=== PATIENT | male | born 1970 | race Caucasian/White ===

== ENCOUNTER 2024-01-02 10:31 | Emergency (ER) | payer OTHER, SELFPAY ==
[2024-01-02 10:51] VITALS: BP 123/82
[2024-01-02 11:35] LABS: % Basophils 0.9 % (0-2); % Eosinophils 4.2 % (0-6); % Immature Granulocytes 0.2 % (0-0.5); % Lymphocytes 29.8 % (20.5-51.1); % Monocytes 8.7 % (1.7-9.3); % Neutrophils 56.2 % (42.2-75.2); Absolute Basophils 0.1 10^3/uL (0-0.2); Absolute Eosinophils 0.2 10^3/uL (0-0.7); Absolute Lymphocytes 1.7 10^3/uL (1.2-3.4); Absolute Monocytes 0.5 10^3/uL (0.1-0.6); Absolute Neutrophils 3.3 10^3/uL (1.4-6.5); Hematocrit 40.9 % (39.0-52.0); Mean Corp Hgb Conc. 34.2 g/dL (33.0-37.0); Mean Corpuscular Hgb 29.8 pg (27.0-31.0); Mean Platelet Volume 9.8 fL (7.4-10.4); Nucleated Red Blood Cells % 0 % (-); Platelet Count 283 10^3/uL (130-400); White Blood Cell Count 5.8 10^3/uL (4.8-10.8)
[2024-01-02 12:05] LABS: ALT (SGPT) 23 U/L (0-50); AST (SGOT) 27 U/L (17-59); Albumin 4.8 g/dl (3.5-5.0); Alkaline Phosphatase 54 U/L (38-126); Blood Urea Nitrogen 17 mg/dl (9-20); Calcium 9.6 mg/dl (8.4-10.2); Carbon Dioxide 26 mmol/L (22-30); Chloride 105 mmol/L (98-107); Glucose 91 mg/dl (70-99); Lipase 364 U/L (23-300); Potassium 4.7 mmol/L (3.5-5.1); Sodium 136 mmol/L (135-145); Total Bilirubin 0.7 mg/dl (0.2-1.3); eGFR > 60.00
--- NOTE | 2024-01-02 14:52 | ED.GENMED ---
History of Present Illness
General
Chief Complaint: Abdominal Pain
Time Seen by Provider: 01/02/24 11:18
Travel History
Have you had any contact with someone who has COVID-19?: No
Do you have any symptoms of coronavirus? Fever > 100 degrees, chills, cough, shortness of breath, sore throat, loss of taste or smell, muscle aches, or headache?: No
History of Present Illness
History of Present Illness:
53-year-old male presents to the emergency department for evaluation of persistent and random right upper quadrant abdominal pain ongoing for the past month or more. He saw his primary care physician for this earlier this week and had outpatient
labs showing an elevated lipase. Lipase was approximately 6 times the upper limit on outpatient assay, transaminases were normal. He denies any current abdominal pain, denies any postprandial discomfort, vomiting, or fevers. Denies alcohol use or
NSAID use. No prior abdominal surgical history
Review of Systems
Review of Systems
Allergies reviewed?: Yes
All Other Systems: ROS reviewed and negative except as documented in HPI and ROS
Phy Exam
Physical Exam
Physical Exam:
GEN: Well appearing, NAD, WDWN
HEENT: Oral mucosa moist, no scleral icterus
Cardiac: Regular rate
Lung: No respiratory distress, no tachypnea
Abdomen: Soft, nontender, no rigidity
MSK: No gross deformity or injuries
Skin: Good color, no pallor or jaundice, no rashes
Neuro: AO x3, moves all extremities freely
Psych: Calm, cooperative
Course
Orders/Labs/Results
Orders:
Orders
01/02/24 11:29
Complete Blood Count/With Diff Urgent
Comprehensive Metabolic Panel Urgent
Lipase Urgent
01/02/24 11:44
CT Abd/Pel (IV only)-DH only Urgent
Comment:
Reason For Exam: pancreatitis
Abnormal Lab Results
04/18/24
11:29
Lipase 364 H U/L
(23-300)
01/02/24 11:29
01/02/24 11:29
Vital Signs
Initial and Last Documented VS:
Initial Vital Signs
Temp Pulse Resp BP Pulse Ox
98.3 F 67 16 123/82 100
01/02/24 10:51 01/02/24 10:51 01/02/24 10:51 01/02/24 10:51 01/02/24 10:51
Last Documented Vital Signs
Temp Pulse Resp BP Pulse Ox
98.3 F 67 16 123/82 100
01/02/24 10:51 01/02/24 10:51 01/02/24 10:51 01/02/24 10:51 01/02/24 10:51
MDM/Problems Addressed
MDM/Problems Addressed:
Patient's lipase is modestly elevated here however does not meet the criteria for pancreatitis. Patient is clinically well with no current pain. Recommend outpatient GI follow-up
*Critical Care Note
Total Time (30-74mins, 75-104mins- exclusive of procedures): Not Applicable
ED Attending Note
-
Portions of this chart may have been created with voice recognition software.� Occasional wrong word or��sound alike� substitutions may have occurred due to the inherent limitations of voice recognition software.
Discharge Plan
Departure
Patient Disposition: Home (Routine Discharge)
Date of Disposition: 01/02/24
Time of Disposition: 14:52
Patient with high blood pressure during this ER visit?: No
Discharge Problem:
Right upper quadrant abdominal pain
Instructions: Abdominal Pain
Referrals:
Ileana Harrell MD [Family Provider] -
Kaleb Mayfield MD [Active] -
Interventions
Interventions:
SK-Yyqmkd-Gdggxpoxzt Assessment Last Done: 01/02/24 11:30
Discharge Date and Time
Print Language: ALBAN[place]
== END 2024-01-02 15:07 | disposition home or self-care (01) ==
LOC: EMR 10:31
PROVIDERS: EMERGENCY PHYSICIAN Emergency Medicine; FAMILY PHYSICIAN Internal Medicine
DX: R10.11 Right upper quadrant pain (principal); R74.8 Abnormal levels of other serum enzymes
CPT/HCPCS: 99285; 74177; 80053; 83690; 85025; Q9967

== ENCOUNTER → 2024-02-25 06:24 | Day surgery (SDC) | payer OTHER, SELFPAY | LOC: GI 06:24 | PROVIDERS: ATTENDING PHYSICIAN Internal Medicine | DX: R10.11 Right upper quadrant pain (principal); R10.13 Epigastric pain; K22.89 Other specified disease of esophagus; K31.89 Other diseases of stomach and duodenum; K29.50 Unspecified chronic gastritis without bleeding; K31.A14 Gastric intestinal metaplasia without dysplasia, involving the cardia | CPT/HCPCS: 43239; 88305; 88312; 88342 ==

== ENCOUNTER → 2024-03-04 07:26 | Outpatient (REF) | payer OTHER, SELFPAY | LOC: PAVMRI 07:26 | PROVIDERS: ATTENDING PHYSICIAN Internal Medicine | DX: K85.90 Acute pancreatitis without necrosis or infection, unspecified (principal); K76.89 Other specified diseases of liver | CPT/HCPCS: 74183; A9575 ==